=== PATIENT | male | born 1935 | race Caucasian/White ===

== ENCOUNTER 2017-01-04 15:02 | Emergency (ER) | payer OTHER ==
--- NOTE | ~2017-01-04 | CR281 ---
[facility]. [facility] A Service of [facility] & [facility] RADIOLOGY TEXT RESULTS PATIENT: YUAN GARCIA LOCATION: SED : 37 UNIT #: [id number] AGE: [address]: Susan Noble MD SEX: M ORDER DR: [id number] [address] [address] [id number] E MR#: [id number] Acc #: [id number] NAME: YUAN GARCIA : 1935 SEX: M STUDY DATE/TIME: 01/04/2017 15:00 UNIT: SED ROOM: STUDY DESCRIPTION: CR Wrist Min 3 View Lt Attending Physician: Susan Noble M.D. Ordering Physician: Susan Noble M.D. Primary Care Physician: No Primary Care Physician MEDICAL IMAGING REPORT This report is preliminary unless electronic signature is present. EXAM Left wrist, 3 views. DATE OF EXAM 01/04/2017 HISTORY Wrist pain after fall today. Injury. FINDINGS 3 views of the left wrist demonstrate nondisplaced oblique fractures through the base of the third and fourth metacarpals. There is an impacted transverse fracture at the neck of the fifth metacarpal. Wrist alignment is satisfactory. Generalized demineralization. No dislocation. Mild soft tissue swelling about the wrist. Dictated by... Brady Perez M.D. THIS IS AN ELECTRONICALLY VERIFIED REPORT Brady Perez M.D. at 01/04/2017 11:24 PM JESS/vandana TD: 01/04/2017 21:31 JOB #: [id number] MEDICAL IMAGING REPORT
--- NOTE | ~2017-01-04 | CR141 ---
[facility]. [facility] A Service of [facility] & [facility] RADIOLOGY TEXT RESULTS PATIENT: YUAN GARCIA LOCATION: SED : 37 UNIT #: [id number] AGE: [address]: Susan Noble MD SEX: M ORDER DR: [id number] [address] [address] [id number] E MR#: [id number] Acc #: [id number] NAME: YUAN GARCIA : 1935 SEX: M STUDY DATE/TIME: 01/04/2017 15:00 UNIT: SED ROOM: STUDY DESCRIPTION: CR Hand Min 3 Views Lt Attending Physician: Susan Noble M.D. Ordering Physician: Susan Noble M.D. Primary Care Physician: Primary Care Physician No MEDICAL IMAGING REPORT This report is preliminary unless electronic signature is present. EXAM Left hand INDICATIONS Fall an hour ago off the front porch with left hand pain. FINDINGS 3 views of the left hand were obtained. There is decreased bone density. There is an acute fracture through the distal end of the fifth metacarpal bone. This is a boxer's fracture. The other bones are normal. IMPRESSION Acute slightly dorsally angulated fracture through the distal portion of the shaft of the fifth metacarpal bone. Dictated by... Ronen Mccain M.D. THIS IS AN ELECTRONICALLY VERIFIED REPORT Ronen Mcacin M.D. at 01/05/2017 6:04 AM FEL/psc TD: 01/04/2017 21:36 JOB #: [id number] MEDICAL IMAGING REPORT
--- NOTE | ~2017-01-04 | CR206 ---
[facility] A Service of [facility] & [facility] RADIOLOGY TEXT RESULTS PATIENT: YUAN GARCIA LOCATION: SED : 37 UNIT #: [id number] AGE: [address]: Susan Noble MD SEX: M ORDER DR: [id number] [place] [id number] E MR#: [id number] Acc #: [id number] NAME: YUAN GARCIA : 1935 SEX: M STUDY DATE/TIME: 01/04/2017 15:00 UNIT: SED ROOM: STUDY DESCRIPTION: CR Pelvis 1 or 2 Views Attending Physician: Susan Noble M.D. Ordering Physician: Susan Noble M.D. Primary Care Physician: Primary Care Physician No MEDICAL IMAGING REPORT This report is preliminary unless electronic signature is present. EXAM AP pelvis, 01/04/2017 INDICATION Fall 1 hour ago off front porch with pain. FINDINGS Supine view of the pelvis was obtained. The bones are normal. There is no fracture. The SI joints are normal. IMPRESSION Normal AP pelvis. Dictated by... Ronen Mccain M.D. THIS IS AN ELECTRONICALLY VERIFIED REPORT Ronen Mccain M.D. at 01/05/2017 6:04 AM NEGRO/wilmer TD: 01/04/2017 21:09 JOB #: [id number] MEDICAL IMAGING REPORT
--- NOTE | ~2017-01-04 | CR90 ---
[facility] A Service of [facility] & [facility] RADIOLOGY TEXT RESULTS PATIENT: YUAN GARCIA LOCATION: SED : 37 UNIT #: [id number] AGE: [address]: Susan Noble MD SEX: M ORDER DR: [id number] [place] [id number] E MR#: [id number] Acc #: [id number] NAME: YUAN GARCIA : 1935 SEX: M STUDY DATE/TIME: 01/04/2017 15:00 UNIT: SED ROOM: STUDY DESCRIPTION: CR Elbow 2 View Lt Attending Physician: Susan Noble M.D. Ordering Physician: Susan Noble M.D. Primary Care Physician: Primary Care Physician No MEDICAL IMAGING REPORT This report is preliminary unless electronic signature is present. EXAM Left elbow, 2 views HISTORY Elbow pain after fall today. FINDINGS 2 views of the left elbow demonstrate normal bone alignment. No fracture, joint space narrowing or dislocation. No effusion. IMPRESSION Negative. Dictated by... Brady Perez M.D. THIS IS AN ELECTRONICALLY VERIFIED REPORT Brady Perez M.D. at 01/04/2017 11:24 PM DFL/venkat TD: 01/04/2017 21:28 JOB #: [id number] MEDICAL IMAGING REPORT
[~2017-01-04 15:02] MED LIST: ALPRAZOLAM PO; ASPIRIN PO; ASPIRIN81 M2 PO; ASPIRINEC PO; ATENOLOL25 MG PO; ATIVAN PO; BLOOD PRESSURE; CELEXA20 MG PO; HALDOL0.5 MG PO; IMDUR-ER30 M1 PO; ISORDIL PO; KCL PO; LASIX PO; LASIX20 MG PO; LATUDA20 MG PO; LIPITOR80 MG PO; LISINOPRIL20 MG PO; LOPRESSOR PO; LORTAB 5/500 TA1 TA1 PO; MAGOX 400400 MG PO; NO MEDICATIONS; NORCO1 TAB 10/3 PO; PHENERGAN PO; PLAVIX PO; POTASSIUM CHLO10 ME1 PO; PROZAC10 M1 PO; REMERON15 MG PO; ULTRAM PO; UNKNOWN MEDICATION; VITAMIN B-121000 MC1 SL; ZESTRIL40 MG PO; ZOCOR PO; ZOFRAN ODT4 MG/UDTAB PO; [UNRECOGNIZED DRUG - REMARK]
== END 2017-01-04 17:59 | disposition home or self-care (01) ==
LOC: SED 15:02
DX: S62.327A Displaced fracture of shaft of fifth metacarpal bone, left hand, initial encounter for closed fracture (principal); S62.343A Nondisplaced fracture of base of third metacarpal bone, left hand, initial encounter for closed fracture; S62.345A Nondisplaced fracture of base of fourth metacarpal bone, left hand, initial encounter for closed fracture; Z86.73 Personal history of transient ischemic attack (TIA), and cerebral infarction without residual deficits; I10 Essential (primary) hypertension; Z88.0 Allergy status to penicillin; W18.30XA Fall on same level, unspecified, initial encounter; Y92.009 Unspecified place in unspecified non-institutional (private) residence as the place of occurrence of the external cause
CPT/HCPCS: 29125; 72170; 73070; 73110; 73130; 99284

== ENCOUNTER 2017-01-06 13:23 | Emergency (ER) | payer OTHER ==
[2017-01-07] MEDS ORDERED: ACETAMINOPHEN PO (21:53)
[2017-01-07] MEDS ORDERED: HALDOL PO (21:58)
[2017-01-07] MEDS ORDERED: HYDRALAZINE HCL25 MG PO (21:58)
[2017-01-07] MEDS ORDERED: LATUDA20 MG PO (21:58)
[2017-01-07] MEDS ORDERED: COGENTIN1 M1 PO (21:59)
[2017-01-07] MEDS ORDERED: ASPIRIN81 MG PO (21:59)
== END 2017-01-06 16:05 | disposition home or self-care (01) ==
LOC: CED 13:23
DX: S62.303A Unspecified fracture of third metacarpal bone, left hand, initial encounter for closed fracture (principal); S62.307A Unspecified fracture of fifth metacarpal bone, left hand, initial encounter for closed fracture; Z88.0 Allergy status to penicillin; W19.XXXA Unspecified fall, initial encounter; Y92.009 Unspecified place in unspecified non-institutional (private) residence as the place of occurrence of the external cause
CPT/HCPCS: 29125; 99283

== ENCOUNTER 2017-01-07 13:04 | Emergency (ER) | payer OTHER ==
[2017-01-07] MEDS ORDERED: ACETAMINOPHEN PO (21:53)
[2017-01-07] MEDS ORDERED: HALDOL PO (21:58)
[2017-01-07] MEDS ORDERED: HYDRALAZINE HCL25 MG PO (21:58)
[2017-01-07] MEDS ORDERED: LATUDA20 MG PO (21:58)
[2017-01-07] MEDS ORDERED: ASPIRIN81 MG PO (21:59)
[2017-01-07] MEDS ORDERED: COGENTIN1 M1 PO (21:59)
== END 2017-01-07 13:40 | disposition home or self-care (01) ==
LOC: CED 13:04
DX: S62.307A Unspecified fracture of fifth metacarpal bone, left hand, initial encounter for closed fracture (principal); G30.9 Alzheimer's disease, unspecified; W19.XXXA Unspecified fall, initial encounter; Y92.009 Unspecified place in unspecified non-institutional (private) residence as the place of occurrence of the external cause; Z88.0 Allergy status to penicillin
CPT/HCPCS: 29125; 99283

== ENCOUNTER 2017-01-07 18:29 | Inpatient (IN) | payer OTHER ==
--- NOTE | ~2017-01-07 | CO ---
Unit #: [id number] #: [id number] Patient: YUAN GARCIA [id number] [address] [place], [place] [address] [id number] I MR#: [id number] NAME: YUAN GARCIA ROOM: [facility] Age: 81 Sex: M Admission Date: 01/07/2017 : 1935 Attending Physician: Sotero Ferro M.D. Primary Care Physician: Shankar Perea M.D. Consultation Date: 01/09/2017 CONSULTATION REPORT REASON FOR CONSULTATION Agitation and confusion. HISTORY OF PRESENT ILLNESS Mr. Yuan Du is a 81-year-old male, seen on 01/09/2017 in bed 469. The patient well known to us from his previous admission. 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 The patient needing a sitter, unable to give coherent history. Disorganized behavior. Disorganized thought process. Agitated. Mood was labile and irritable. But the patient was able to eat and take his medication p.o. PAST PSYCHIATRIC HISTORY Remarkable for history of Alzheimer dementia. PAST MEDICAL HISTORY Remarkable for history of stroke, Alzheimer dementia, B12 deficiency, hypertension, multiple falls, coronary artery disease. MEDICATIONS The patient is on Latuda, hydralazine, aspirin. Please refer to MAR for detail. FAMILY HISTORY AND SOCIAL HISTORY The patient has a poor family support. The patient was resident of long term. No history of any abuse. No history of any substance abuse. REVIEW OF SYSTEMS Remarkable for agitation and confusion. MENTAL STATUS EXAMINATION General appearance, the patient dressed casually. Attention span and concentration, poor. Speech, rapid. Orientation, unable to assess. Mood and affect, labile. Thought process, circumstantial. Thought content, guarded, paranoid, but denied any thoughts of harming self or others. Recent and remote memory, poor. Language, fair. Fund of knowledge, impaired. Insight and judgment, impaired. 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 Secondary diagnosis: Deferred. Unit #: [id number] #: [id number] Patient: YUAN GARCIA Medical diagnosis: Please refer to H and P. Stressors: Psychosocial stressors. ASSESSMENT/PLAN 1. Supportive psychotherapy and psychoeducation provided to patient, but the patient unable to comprehend much. 2. Advised to continue with a sitter. 3. Advised to increase Latuda to 40 mg daily. If needed, consider further adjustment of medication. We will continue to follow. Please feel free to call if any questions, telephone [phone]. Dictated by... Jocelyn Shin/andres TD: 01/11/2017 01:23 JOB #: [id number] CONSULTATION REPORT X Gerson Daugherty MD X CONSULTATION REPORT
--- NOTE | ~2017-01-07 | CO ---
Unit #: [id number] #: [id number] Patient: YUAN BARBER [id number] [address] [place], [place] [address] [id number] I MR#: [id number] NAME: YUAN BARBER ROOM: [facility] Age: 81 Sex: M Admission Date: 01/07/2017 : 1935 Attending Physician: Sotero Ferro M.D. Primary Care Physician: Shankar Perea M.D. Consultation Date: 01/12/2017 CONSULTATION REPORT REASON FOR CONSULTATION Left hand metacarpal fractures. HISTORY OF PRESENT ILLNESS Mr. Barber is a 81-year-old with Alzheimer dementia and behavioral changes who has a history of multiple falls. The patient apparently fell, landing on his left outstretched hand, resulting in metacarpal fractures. The patient was discharged home, but due to agitation, the had to bring him back for further care. He is currently requiring Haldol and a one-on-one sitter. The patient does note some left hand pain but, otherwise, apparently has been doing okay. PAST MEDICAL HISTORY 1. Coronary artery disease. 2. Hypertension. 3. Hyperlipidemia. 4. Multiple CVAs. 5. Dementia. 6. Depression. PAST SURGICAL HISTORY 1. CABG. 2. Cholecystectomy. 3. Right elbow surgery. SOCIAL HISTORY The patient lives with his . He does not smoke or drink alcohol. FAMILY HISTORY Coronary artery disease. ALLERGIES Penicillin. MEDICATIONS Desyrel, Latuda, Vistaril, hydralazine, Cogentin, aspirin, Zofran, Percocet, Tylenol, Haldol. REVIEW OF SYSTEMS On examination, the patient was confused this morning. No pertinent positives or negatives obtained differing from the HPI. PHYSICAL EXAMINATION GENERAL: The patient is resting in bed but is not alert or oriented. Unit #: [id number] #: [id number] Patient: YUAN BARBER VITAL SIGNS: Temperature 98.4 degrees Fahrenheit, pulse 56, blood pressure 148/56, respirations 18, oxygen saturation 98%. HEENT: Head is atraumatic and normocephalic. Mucous membranes are moist. NECK: Cervical spine is midline. No appreciable JVD. RESPIRATORY: Breathing is nonlabored, and chest rises symmetric. CARDIOVASCULAR: Pulse is regular rate and rhythm. ABDOMEN: Abdomen is soft, nontender and nondistended. EXTREMITIES: No clubbing, cyanosis or edema of the extremities other than the left hand. No open skin wounds appreciated. There are some abrasions of the left wrist and arm. FOCUSED ORTHOPEDIC EXAM OF THE LEFT UPPER EXTREMITY: RENA bandage over the wrist and hand. No splint. Moderate swelling about the hand region. Grossly moving digits. No motor or sensory deficit appreciated. Hand warm and well perfused. DIAGNOSTIC STUDIES DIAGNOSTIC IMAGING: X-rays reviewed of the left hand. There are nondisplaced bases of the third and fourth metacarpal fractures. There is a boxer's fracture of the fifth metacarpal. This is mildly displaced. DIAGNOSTIC LABS: BUN 24, creatinine 1.1. White blood cell count 5.9, hemoglobin 11.8, platelets 124. IMPRESSION A 81-year-old male with Alzheimer dementia and left base of third and fourth nondisplaced metacarpal fractures and fifth displaced boxer's fracture. PLAN I recommend continued conservative treatment. We will order a Velcro splint to help protect the hand and wrist. It may need to be wrapped with an RENA bandage to prevent the patient from taking it off. These fractures will heal with time. No surgery or other treatment needed. We will obtain the splint and check in on the patient afterward. Thank you for consulting us on this patient. Dictated by... Rahat Lambert M.D. CHERI/korey TD: 01/12/2017 08:19 JOB #: [id number] CONSULTATION REPORT X X CONSULTATION REPORT
--- NOTE | ~2017-01-07 | A ---
[facility] Nutrition Therapy DATE: 01/17/17 Patient: YUAN GARCIA Physician: SUKHWINDERPRAN Address: [address] [facility] Room/Bed: [address] [place] [address], Zip: [place] [address] Admit Date: 01/07/17 Date of : 37 Height: Weight: 171 78.01 NUTRITIONAL ASSESSMENT: REASON: Seen for length of stay Admitting Dx: 81 y/o male admitted with left metacarpal fractures, falls, weakness PMH: Multiple falls, dementia, depression, CAD s/p CABG, multiple strokes, HTN, HLD, B12 deficiency Anthropometrics: Ht: 67", admission wt: 78 kg, no new weight, BMI: 26 (overweight) Labs: Na 134, BUN 31 Meds: Zofran, Colace, psych meds noted I/O & Bowel function: LBM 01/14 Skin Integrity: Splint L wrist Assessment: Chart reviewed, events noted. See admitting dx and PMH as stated above. Patient being assessed due to 10 day LOS. He has hx of dementia, is A/O x 1, is anxious and confused, has 1:1 sitter. unable to care for him any longer, awaiting NH placement. Dr. Daugherty is following. No new weight since admission. Has been on a regular diet since admission however nursing reports PO intake is not great (usually < 50% of meals). RN also reports the patient needs fluids but patient is refusing an IV so she is trying to push PO fluids. RD discussed ordering Ensure, RN agreed it would be a good idea. Patient requires feeding and ordering assistance. Unable to interview patient or obtain weight/diet history due to his mental status, no family at bedside. See RD recs below, will follow hospital course. Dx: Inadequate oral intake r/t dementia-producing behavioral changes AEB RN report, need for ONS. Intervention: Ensure TID Monitoring, Evaluation and Goals: 1. Increase in oral intake > 50% of meals. 2. > 50% supplement intake TID. 3. Prevent unintentional weight loss. 4. Promote adequate fluid status. 5. Promote normal BM's. [facility] Nutrition Therapy DATE: 01/17/17 Patient: YUAN GARCIA Physician: REJI Address: [address] [place] [address] Room/Bed: [address] [place] [address], Zip: [place] [address] Admit Date: 01/07/17 Date of : 37 Height: Weight: 171 78.01 Monitor: Per protocol, criteria to determine if above goals met Recommendations: 1. Continue regular diet, appreciate staff/family to encourage oral intake. Patient requires full assistance with order meals and feeding. 2. RD ordered Ensure TID to increase oral kcal/protein/fluid intake. Please also encourage increased PO water intake. 3. Weigh the patient and update in [facility] to monitor weight trend. RD will follow hospital course Mild-moderate nutrition risk Respectfully, Marita Porter, CARLENE, LD [facility] cc: client file
--- NOTE | ~2017-01-07 | CR278 ---
[facility] A Service of [facility] RADIOLOGY TEXT RESULTS PATIENT: YUAN GARCIA LOCATION: [place] [address] : 37 UNIT #: [id number] AGE: [address]: Sotero Ferro MD SEX: M ORDER DR: [id number] [facility] [address] [place], [place] [address] [id number] I MR#: [id number] Acc #: [id number] NAME: YUAN GARCIA : 1935 SEX: M STUDY DATE/TIME: 01/10/2017 11:48 UNIT: [facility] ROOM: [facility] STUDY DESCRIPTION: CR Wrist 2 View Lt Attending Physician: Sotreo Ferro M.D. Ordering Physician: Sotero Ferro M.D. Primary Care Physician: Shankar Perea M.D. MEDICAL IMAGING REPORT This report is preliminary unless electronic signature is present EXAM Left wrist, 3 views. DATE OF EXAM 01/10/2017, 1148 hours. CLINICAL HISTORY Chart says patient fell on 01/07/2017, with pain in the wrist and distal forearm. COMPARISON Left wrist film, 01/04/2017. FINDINGS AP, lateral and oblique views are performed. The bones are osteopenic. The distal radius and ulna and carpal bones are intact. Again demonstrated are fractures of the proximal third and fourth metacarpals and displaced angulated fracture of the distal fifth metacarpal which appeared to be acute on 01/04/2017. No interval healing is seen. IMPRESSION 1. No acute fracture of the distal radius or ulna or carpal bones. 2. Again demonstrated are fractures of the proximal third and fourth metacarpals and the distal fifth metacarpal similar to 01/04/2017. No interval healing is seen. Dictated by... Jonelle Dacosta M.D. THIS IS AN ELECTRONICALLY VERIFIED REPORT Jonelle Dacosta M.D. at 01/11/2017 9:29 AM SMM/jt [facility] A Service of [facility] & [facility] RADIOLOGY TEXT RESULTS PATIENT: YUAN GACRIA LOCATION: [facility] 476-01 : 37 UNIT #: [id number] AGE: [address]: Sotero Ferro MD SEX: M ORDER DR: TD: 01/10/2017 16:58 JOB #: [id number] MEDICAL IMAGING REPORT COPY
--- NOTE | ~2017-01-07 | CO ---
Unit #: [id number] #: [id number] Patient: YUAN BARBER [id number] [facility] [address] [place], [place] [address] [id number] I MR#: [id number] NAME: YUAN BARBER ROOM: 476 Age: 81 Sex: M Admission Date: 01/07/2017 : 1935 Attending Physician: Sotero Ferro M.D. Primary Care Physician: Shankar Perea M.D. Consultation Date: 01/11/2017 CONSULTATION REPORT DISCUSSION Yuan Barber is a 81-year-old male, seen on 01/11/2017 in room 476. The patient continues to be confused and guarded. The patient was seen in room 476 at [facility] on 01/11/2017. The patient's behavior continues to be disorganized, guarded, paranoid, anxious, confused. The patient is needing a sitter for safety. REVIEW OF SYSTEMS Complete review of systems unremarkable. MENTAL STATUS EXAMINATION General appearance, the patient is dressed casually, lying comfortably in bed. Attention span and concentration, poor. Speech, rapid. Orientation in place. Mood and affect, labile. Thought process, circumstantial. Thought content, guarded, paranoid, but denied any thoughts of harming self or others. Recent and remote memory, poor. Language, the patient has intelligible speech. Fund of knowledge, poor. Insight and judgment, impaired. 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 ASSESSMENT/PLAN 1. Supportive psychotherapy and psychoeducation were provided to patient, but the patient is unable to comprehend much. 2. Advised to continue with a sitter for the patient's safety. 3. Recommending to continue with current medication with a plan to add trazodone 50 mg at bedtime as the patient is having trouble sleeping. Please feel free to call if any questions, telephone #[phone]. Dictated by... Gerson Daugherty M.D. TAVON/andres TD: 01/12/2017 07:10 JOB #: [id number] Unit #: [id number] #: [id number] Patient: YUAN BARBER CONSULTATION REPORT X Gerson Daugherty MD CONSULTATION REPORT
--- NOTE | ~2017-01-07 | CT71 ---
[facility] A Service of [facility] RADIOLOGY TEXT RESULTS PATIENT: YUAN GARCIA LOCATION: [facility] 463- : 37 UNIT #: [id number] AGE: [address]: Arnie Wilson MD SEX: M ORDER DR: [id number] [facility] [address] [facility]. [place], [place] [address] [id number] I MR#: [id number] Acc #: [id number] NAME: YUAN GARCIA : 1935 SEX: M STUDY DATE/TIME: 01/07/2017 17:59 UNIT: [facility] ROOM: [facility] STUDY DESCRIPTION: CT Head Wo Contrast Attending Physician: Arnie Wilson M.D. Ordering Physician: Tom Beal D.O. Primary Care Physician: Shankar Perea M.D. MEDICAL IMAGING REPORT This report is preliminary unless electronic signature is present EXAM Head CT without contrast 01/07/2017. HISTORY Posterior head pain status post fall 1 week ago, with altered mental status, increased confusion since fall. TECHNIQUE Multiple axial images were obtained from the skull base to vertex without intravenous contrast administration. This CT exam was performed with one or more of the following radiation dose reduction techniques: automatic exposure control, adjustment of mA and/or kV according to patient size, and iterative reconstruction. FINDINGS There is generalized enlargement of the ventricles and sulci characteristic of atrophy and there is periventricular microvascular white matter ischemic change. There is an old right middle cerebral artery distribution infarct with encephalomalacia. There are old lacunar infarcts involving both cerebellar hemispheres, right thalamic nucleus and the lentiform nuclei bilaterally. There is no midline shift. There is no mass or mass effect, hemorrhage or acute infarct. There is complete opacification of the left maxillary sinus characteristic of sinusitis. IMPRESSION 1. Generalized atrophy and periventricular microvascular white matter ischemic change. 2. Old right middle cerebral artery distribution infarct with encephalomalacia. Old lacunar infarcts as noted above. No acute intracranial abnormality. 3. Complete opacification of the left maxillary sinus characteristic of sinusitis. [facility] A Service of [facility] RADIOLOGY TEXT RESULTS PATIENT: YUAN GARCIA LOCATION: [facility] 463-01 : 37 UNIT #: [id number] AGE: [address]: Arnie Wilson MD SEX: M ORDER DR: Dictated by... Ignacio Avery M.D. THIS IS AN ELECTRONICALLY VERIFIED REPORT Ignacio Avery M.D. at 01/08/2017 2:14 PM KRT/gz TD: 01/08/2017 08:51 JOB #: [id number] MEDICAL IMAGING REPORT COPY
--- NOTE | ~2017-01-07 | HP ---
Unit #: [id number] #: [id number] Patient: YUAN GARCIA [id number] [facility]. [place], [place] [address] [id number] I MR#: [id number] NAME: YUAN GARCIA ROOM: 463 Age: 81 Sex: M Admission Date: 01/07/2017 : 1935 Attending Physician: Arnie Wilson M.D. Primary Care Physician: Shankar Perea M.D. HISTORY AND PHYSICAL CHIEF COMPLAINT Hand pain. cannot take care of the patient. DISCUSSION This is a 81-year-old gentleman who has a history of Alzheimer's dementia with behavioral changes with history of multiple falls, coronary artery disease with previous CABG, stroke, hypertension, and prior history of B12 deficiency. He recently had an admission at [facility] and was discharged home. Patient also has been having multiple visits to the emergency room. He had a fall two days ago and was brought to the emergency room where workup on x-ray showed a left fracture of distal portion of the fifth metacarpal and third and fourth metacarpals. A cast was placed, and patient was eventually discharged. He was brought again to the ER today, the second time again brought to the ER. The dropped the patient at the ER. The said that she cannot take care of the patient, and she left. Not able to reach the at this time, not answering. He was a little bit agitated requiring some Haldol, and now he is requiring a one-to-one sitter. He is otherwise comfortable. He is not agitated at this time. Patient is being admitted for fdc placement. Patient said he feels better. His feet are cold and is having left hand pain; otherwise, he denies any other complaints. PAST MEDICAL HISTORY 1. Coronary artery disease, status post three-vessel CABG. Previous echo in February 2016 was a technically difficulty study with mild left ventricular hypertrophy, left ventricular systolic function normal, impaired left ventricular relaxation, and trace mitral regurgitation and tricuspid regurgitation. 2. Lexiscan in July 2015 revealed a fixed lateral wall perfusion abnormality. 3. Holter monitor in September 2016 showed no sustained atrial or ventricular arrhythmia, a 1.8 second pause noted, and frequent single multifocal PVCs. 4. Hypertension. 5. Hyperlipidemia. 6. Multiple CVAs. 7. Dementia with behavior changes. 8. Depression. 9. Admission for multiple falls in the past and also prolonged QT interval. 10. Admission in August 2016 for delirium, dementia, and fall with multiple rib fractures. 11. Low B12 level. 12. Cholecystectomy. Unit #: [id number] #: [id number] Patient: YUAN GARCIA 13. Right elbow repair. SOCIAL HISTORY Patient lives with his . He is a lifelong nonsmoker and does not drink alcohol. FAMILY HISTORY Coronary artery disease. ALLERGIES PENICILLIN. MEDICATIONS Discharge medications from the last discharge were: 1. Tylenol 650 q.4 hours p.r.n. 2. Haldol 1 mg b.i.d. p.r.n. 3. Latuda 20 mg at bedtime. 4. Hydralazine 25 mg 3 times daily. 5. Aspirin 81 mg daily. 6. Cogentin 1 mg daily. REVIEW OF SYSTEMS Difficult to obtain as the patient himself is a very poor historian. PHYSICAL EXAMINATION GENERAL: An elderly man lying in the bed comfortably, currently not in any distress. CURRENT VITAL SIGNS: Temperature 98, heart rate 64, respirations 16, and blood pressure is 141/70. HEENT: Pupils equally reactive to light and accommodation. Extraocular muscles intact. Pharynx is benign. NECK: Supple. No JVD, no thyromegaly. LUNGS: Clear to auscultation. No rhonchi, no wheezing. HEART: S1 and S2, regular rate and rhythm. ABDOMEN: Soft, nontender, nondistended. Bowel sounds positive. EXTREMITIES: Inspection normal. No cyanosis, no clubbing, no edema. NEUROLOGIC: Unable to do neuro exam at this time secondary to patient's cooperation. DIAGNOSTIC STUDIES LABORATORY: Urine toxicology is negative. Urinalysis is negative. Glucose 88, sodium 136, potassium 3.4, chloride 101, BUN 20, and creatinine 1. LFTs within normal limits. Alcohol less than 5. CBC with white count of 6.9, hemoglobin 12, hematocrit 36, and platelets 116,000. ASSESSMENT AND PLAN 1. Deconditioning, weakness, falls, unable to take care. Will admit the patient for fdc placement and ask the associate financial planner to evaluate. Will keep the patient with a one-to-one sitter and ask Dr. Daugherty/[facility], to evaluate. 2. History of past falls with left fifth metacarpal and third and fourth metacarpal fractures in a cast. 3. Alzheimer's dementia with behavior changes. 4. Multiple falls. 5. History of coronary artery disease with previous coronary artery bypass grafting. 6. History of stroke. 7. Hypertension. Unit #: [id number] #: [id number] Patient: YUAN GARCIA 8. Mild hypokalemia, replace. 9. Previous history of low B12 level. 10. Once again, this admission is a social admission. Will admit the patient and ask associate financial planner to evaluate for rehab placement. 1. Dictated by Jocelyn Walker/evita TD: 01/08/2017 14:19 JOB #: [id number] HISTORY AND PHYSICAL X X HISTORY AND PHYSICAL
--- NOTE | ~2017-01-07 | CO ---
Unit #: [id number] #: [id number] Patient: YUAN BARBER [id number] [place], [place] [address] [id number] I MR#: [id number] NAME: YUAN BARBER ROOM: 476 Age: 81 Sex: M Admission Date: 01/07/2017 : 1935 Attending Physician: Sotero Ferro M.D. Primary Care Physician: Shankar Perea M.D. Consultation Date: 01/13/2017 CONSULTATION REPORT REASON FOR CONSULTATION Followup. DISCUSSION Mr. Yuan Barber is a 81-year-old white male, seen in room 476, bed 1 on 01/13/2017. The patient has a sitter, diagnosed with dementia, also having behavioral disturbances. The patient currently has a sitter. The patient continues to have trouble during the daytime from sleepy to awake. The patient still needing redirection, thoughts disorganized, mood was labile. The patient, however, did not require any seclusion or any restraints, tolerating medication fairly well. The patient is currently on Colace, Desyrel 50 mg at bedtime, Latuda 40 mg at bedtime, Vistaril 25 mg b.i.d., Cogentin 1 mg daily. The patient has a haloperidol p.r.n., but did not require. REVIEW OF SYSTEMS Complete review of systems is unremarkable except for agitation. MENTAL STATUS EXAMINATION General appearance; the patient dressed casually, lying comfortably in bed, redirectable. Attention span and concentration were poor. Speech was rapid, poor articulation. Oriented in place. Mood and affect were labile. Thought process, circumstantial. Thought content, guarded, paranoid, but denied any thoughts of harming self or others. Recent and remote memory, poor. Language, fair. Fund of knowledge, poor. Insight and judgment, impaired. 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 ASSESSMENT/PLAN 1. Supportive psychotherapy and psychoeducation provided to the patient. 2. Educated about benefits and side effects of medication, but the patient unable to comprehend much. 3. Advised at this time to continue with current medication. If needed, consider cutting back on medication, but at this time the patient is tolerating fairly well. We will closely monitor the patient's medication regimen. If needed, consider further adjustment. Thank you. Please feel free to call if any questions, telephone #[phone]. Dictated by... Unit #: [id number] #: [id number] Patient: YUAN BARBER M.D. SZC/andres TD: 01/14/2017 01:02 JOB #: [id number] CONSULTATION REPORT X Gerson Daugherty MD X CONSULTATION REPORT
--- NOTE | ~2017-01-07 | DS ---
Unit #: [id number] #: [id number] Patient: YUAN GARCIA [id number] [place], [place] [address] [id number] MR#: [id number] NAME: YUAN GARCIA ROOM: 471 Age: 81 Sex: M Admission Date: 01/07/2017 : 1935 Discharge Date: 01/17/2017 Attending Physician: Sotero Ferro M.D. Primary Care Physician: Shankar Perea M.D. DISCHARGE SUMMARY ADMITTING DIAGNOSES 1. Hand pain. 2. Failure to thrive. FURTHER DIAGNOSES 1. Hypertension. 2. History of coronary artery disease, status post coronary artery bypass grafting. 3. History of stroke. 4. History of Alzheimer dementia with behavioral changes. 5. Left hand metacarpal fractures. CONSULTANTS 1. Dr. Lambert. 2. Dr. Daugherty. HISTORY OF PRESENTING ILLNESS Patient is a 81-year-old gentleman with a past medical history of Alzheimer dementia, history of multiple falls, coronary artery disease with CABG in the past, stroke, and hypertension, was brought to the emergency room because of hand pain because of fall and also cannot take care of the patient. HOSPITAL COURSE He was started on IV fluids and p.r.n. analgesics for the hand pain. X-rays showed left metacarpal fractures. Orthopedic Surgery was consulted, and they recommended conservative management. In the hospital course, Psychiatry was consulted. His medications were titrated. He initially had a sitter and was agitated. Later, he became calm, and we stopped the sitter in the last 24 hours. I never saw the family in the room. I made an attempt to reach the family today a couple of times, but I could not reach them, and we left a message for them to call back the case coordinator, Kaya mentioned. She spoke with the family, and they are agreeable for him to go to rehab. He will be transferred to rehab for further care. PHYSICAL EXAMINATION ON DAY OF DISCHARGE VITAL SIGNS: Temperature 98.2, pulse rate 48, respiratory rate 18, and blood pressure 146/54. GENERAL: Patient is alert and oriented x3. He is drowsy but arousable. HEENT: Normocephalic and atraumatic. No icterus. Pupils are equal, Unit #: [id number] #: [id number] Patient: YUAN GARCIA round, and reactive to light and accommodation. Extraocular muscles intact. NECK: Supple. No JVD. HEART: S1 and S2, regular rate and rhythm. CHEST: Bilateral equal air entry, clear to auscultation. ABDOMEN: Soft and nontender. EXTREMITIES: Left wrist in splint. DISCHARGE MEDICATIONS 1. Oxycodone 5/325 mg 1 tab p.o. q.4-6 hours p.r.n. for pain. 2. Tylenol p.r.n. 3. Trazodone 50 mg at bedtime. 4. Zofran 4 mg q.6 p.r.n. for nausea and vomiting. 5. Cogentin 1 mg p.o. daily. 6. Haldol 1 mg p.o. twice daily p.r.n. for agitation. 7. Latuda 40 mg daily. 8. Vistaril 25 mg twice daily. 9. Colace 100 mg twice daily. 10. Hydralazine 25 mg 3 times daily. 11. Aspirin 81 mg daily. Total time spent in his care 35 minutes. Dictated by... Jocelyn Santo/evita TD: 01/17/2017 17:06 JOB #: [id number] DISCHARGE SUMMARY Page 1 of 1 X X DISCHARGE SUMMARY
[2017-01-07 18:03] LABS: BASOPHIL% 0.3 % (0-2.5); EOSINOPHIL# 0.1 X10e3 (0-0.7); EOSINOPHIL% 1.7 % (0.0-7.0); HEMATOCRIT 36.3 % (38.0-50.0); HEMOGLOBIN 12.1 gm/dL (13.0-16.0); LYMPHOCYTE# 2.1 X10e3 (1.0-3.5); LYMPHOCYTE% 31.1 % (17.0-45.0); MEAN CELL VOLUME 91.3 FL (83-96); MEAN CORPUSCULAR HEMOGLOBIN 30.4 PG (28-34); MEAN CORPUSCULAR HGB CONC 33.3 g/dL (30-36); MEAN PLATELET VOLUME 10.5 FL (6.5-11.5); MONOCYTE# 0.9 X10e3 (0-1.0); MONOCYTE% 13.7 % (3.0-12.0); NEUTROPHIL# 3.7 X10e3 (1.5-7.1); NEUTROPHIL% 53.2 % (40-75); PLATELET COUNT 116 X10e3 (140-420); RED BLOOD COUNT 3.98 X10e (3.90-5.60); RED CELL DISTRIBUTION WIDTH 13.8 % (11.0-15.5); WHITE BLOOD COUNT 6.9 X10e3 (4.0-10.5)
[2017-01-07 18:04] LABS: DIFF IND NO
[2017-01-07 18:18] LABS: ALBUMIN SERUM 3.6 g/dL (3.5-5.0); ALKALINE PHOSPHATASE 72 U/L (32-92); ALT (SGPT) 14 U/L (10-40); AST (SGOT) 20 U/L (10-42); BLOOD UREA NITROGEN 20 mg/dL (9-23); CALCIUM SERUM 8.4 mg/dL (8.4-10.2); CARBON DIOXIDE 29 mmol/L (22-31); CHLORIDE 101 mmol/L (100-111); GLOM FILT RATE Estimated ABOVE60 mL/min (>60); GLUCOSE FASTING 101 mg/dL (70-110); POTASSIUM 3.4 mmol/L (3.5-5.1); PROTEIN TOTAL SERUM 6.3 g/dL (6.0-8.3); SALICYLATE <4.0 mg/dL; SODIUM 136 mmol/L (135-145)
[2017-01-07 18:24] LABS: ACETAMINOPHEN <10 ug/mL; ALCOHOL BLOOD <5 mg/dL (0)
[2017-01-07 19:54] LABS: URINE SOURCE CLEAN CATCH
[2017-01-07 20:00] LABS: URINE APPEARANCE CLEAR; URINE BILIRUBIN NEG (NEG); URINE BLOOD NEG (NEG); URINE COLOR YELLOW; URINE GLUCOSE NEG (NEG); URINE KETONE NEG (NEG); URINE LEUKOCYTE ESTERASE NEG (NEG); URINE NITRATE NEG (NEG); URINE PROTEIN NEG (NEG); URINE SPECIFIC GRAVITY 1.016 (1.003-1.035)
[2017-01-07 20:04] LABS: CULTURE INDICATED? NO
[2017-01-07 20:33] LABS: AMPHETAMINE NEG (NEG); BARBITURATES NEG (NEG); BENZODIAZEPINES NEG (NEG); COCAINE NEG (NEG); MARIJUANA NEG (NEG); OPIATES NEG (NEG); TRICYCLIC ANTIDEPRESSANTS NEG (NEG); U METHADONE NEG (NEG)
[2017-01-07] MEDS ORDERED: ACETAMINOPHEN PO (21:53)
[2017-01-07] MEDS ORDERED: LATUDA20 MG PO (21:58)
[2017-01-07] MEDS ORDERED: HALDOL PO (21:58)
[2017-01-07] MEDS ORDERED: HYDRALAZINE HCL25 MG PO (21:58)
[2017-01-07] MEDS ORDERED: ASPIRIN81 MG PO (21:59)
[2017-01-07] MEDS ORDERED: COGENTIN1 M1 PO (21:59)
[2017-01-08 07:12] LABS: BASOPHIL% 0.2 % (0-2.5); EOSINOPHIL# 0.1 X10e3 (0-0.7); EOSINOPHIL% 1.6 % (0.0-7.0); HEMATOCRIT 36.6 % (38.0-50.0); HEMOGLOBIN 12.2 gm/dL (13.0-16.0); LYMPHOCYTE# 1.4 X10e3 (1.0-3.5); LYMPHOCYTE% 24.2 % (17.0-45.0); MEAN CELL VOLUME 91.7 FL (83-96); MEAN CORPUSCULAR HEMOGLOBIN 30.7 PG (28-34); MEAN CORPUSCULAR HGB CONC 33.4 g/dL (30-36); MEAN PLATELET VOLUME 11.1 FL (6.5-11.5); MONOCYTE# 0.6 X10e3 (0-1.0); MONOCYTE% 10.7 % (3.0-12.0); NEUTROPHIL# 3.7 X10e3 (1.5-7.1); NEUTROPHIL% 63.3 % (40-75); PLATELET COUNT 108 X10e3 (140-420); RED BLOOD COUNT 3.99 X10e (3.90-5.60); RED CELL DISTRIBUTION WIDTH 13.9 % (11.0-15.5); WHITE BLOOD COUNT 5.8 X10e3 (4.0-10.5)
[2017-01-08 07:13] LABS: DIFF IND NO
[2017-01-08 07:41] LABS: BLOOD UREA NITROGEN 25 mg/dL (9-23); BUN/CREATININE RATIO 22.72; CALCIUM SERUM 8.8 mg/dL (8.4-10.2); CARBON DIOXIDE 28 mmol/L (22-31); CHLORIDE 103 mmol/L (100-111); CREATININE SERUM 1.1 mg/dL (0.6-1.4); GLOM FILT RATE Estimated ABOVE60 mL/min (>60); GLUCOSE FASTING 125 mg/dL (70-110); POTASSIUM 4.1 mmol/L (3.5-5.1); SODIUM 138 mmol/L (135-145)
[2017-01-09 03:09] LABS: HEMATOCRIT 33.8 % (38.0-50.0); HEMOGLOBIN 11.1 gm/dL (13.0-16.0); MEAN CELL VOLUME 91.5 FL (83-96); MEAN CORPUSCULAR HEMOGLOBIN 30.2 PG (28-34); MEAN PLATELET VOLUME 11.3 FL (6.5-11.5); RED BLOOD COUNT 3.69 X10e (3.90-5.60); RED CELL DISTRIBUTION WIDTH 13.9 % (11.0-15.5); WHITE BLOOD COUNT 5.5 X10e3 (4.0-10.5)
[2017-01-09 03:36] LABS: BLOOD UREA NITROGEN 23 mg/dL (9-23); BUN/CREATININE RATIO 25.55; CALCIUM SERUM 8.4 mg/dL (8.4-10.2); CARBON DIOXIDE 29 mmol/L (22-31); CHLORIDE 104 mmol/L (100-111); CREATININE SERUM 0.9 mg/dL (0.6-1.4); GLOM FILT RATE Estimated ABOVE60 mL/min (>60); GLUCOSE FASTING 130 mg/dL (70-110); POTASSIUM 3.8 mmol/L (3.5-5.1); SODIUM 138 mmol/L (135-145)
[2017-01-10 04:20] LABS: BLOOD UREA NITROGEN 22 mg/dL (9-23); BUN/CREATININE RATIO 18.33; CALCIUM SERUM 8.6 mg/dL (8.4-10.2); CARBON DIOXIDE 29 mmol/L (22-31); CHLORIDE 100 mmol/L (100-111); CREATININE SERUM 1.2 mg/dL (0.6-1.4); GLOM FILT RATE Estimated ABOVE60 mL/min (>60); GLUCOSE FASTING 111 mg/dL (70-110); POTASSIUM 4.1 mmol/L (3.5-5.1); SODIUM 133 mmol/L (135-145)
[2017-01-11 04:34] LABS: BASOPHIL% 0.4 % (0-2.5); DIFF IND NO; EOSINOPHIL# 0.2 X10e3 (0-0.7); EOSINOPHIL% 3.9 % (0.0-7.0); HEMATOCRIT 36.5 % (38.0-50.0); HEMOGLOBIN 11.8 gm/dL (13.0-16.0); LYMPHOCYTE# 2.4 X10e3 (1.0-3.5); LYMPHOCYTE% 40.3 % (17.0-45.0); MEAN CELL VOLUME 92.5 FL (83-96); MEAN CORPUSCULAR HEMOGLOBIN 29.9 PG (28-34); MEAN CORPUSCULAR HGB CONC 32.3 g/dL (30-36); MEAN PLATELET VOLUME 10.7 FL (6.5-11.5); MONOCYTE# 0.9 X10e3 (0-1.0); MONOCYTE% 15.2 % (3.0-12.0); NEUTROPHIL# 2.4 X10e3 (1.5-7.1); NEUTROPHIL% 40.2 % (40-75); PLATELET COUNT 124 X10e3 (140-420); RED BLOOD COUNT 3.94 X10e (3.90-5.60); RED CELL DISTRIBUTION WIDTH 14.2 % (11.0-15.5); WHITE BLOOD COUNT 5.9 X10e3 (4.0-10.5)
[2017-01-11 05:01] LABS: BLOOD UREA NITROGEN 24 mg/dL (9-23); BUN/CREATININE RATIO 21.81; CALCIUM SERUM 8.9 mg/dL (8.4-10.2); CARBON DIOXIDE 30 mmol/L (22-31); CHLORIDE 104 mmol/L (100-111); CREATININE SERUM 1.1 mg/dL (0.6-1.4); GLOM FILT RATE Estimated ABOVE60 mL/min (>60); GLUCOSE FASTING 97 mg/dL (70-110); POTASSIUM 4.3 mmol/L (3.5-5.1); SODIUM 139 mmol/L (135-145)
[2017-01-12 04:36] LABS: BLOOD UREA NITROGEN 24 mg/dL (9-23); BUN/CREATININE RATIO 21.81; CALCIUM SERUM 8.6 mg/dL (8.4-10.2); CARBON DIOXIDE 21 mmol/L (22-31); CHLORIDE 105 mmol/L (100-111); CREATININE SERUM 1.1 mg/dL (0.6-1.4); GLOM FILT RATE Estimated ABOVE60 mL/min (>60); GLUCOSE FASTING 124 mg/dL (70-110); POTASSIUM 4.2 mmol/L (3.5-5.1); SODIUM 137 mmol/L (135-145)
[2017-01-14 04:00] LABS: HEMATOCRIT 38.3 % (38.0-50.0); HEMOGLOBIN 12.6 gm/dL (13.0-16.0); MEAN CORPUSCULAR HEMOGLOBIN 30.2 PG (28-34); MEAN CORPUSCULAR HGB CONC 32.8 g/dL (30-36); MEAN PLATELET VOLUME 10.4 FL (6.5-11.5); RED BLOOD COUNT 4.17 X10e (3.90-5.60); RED CELL DISTRIBUTION WIDTH 13.8 % (11.0-15.5); WHITE BLOOD COUNT 6.9 X10e3 (4.0-10.5)
[2017-01-14 04:53] LABS: BLOOD UREA NITROGEN 28 mg/dL (9-23); CARBON DIOXIDE 26 mmol/L (22-31); CHLORIDE 105 mmol/L (100-111); GLOM FILT RATE Estimated ABOVE60 mL/min (>60); GLUCOSE FASTING 112 mg/dL (70-110); POTASSIUM 4.5 mmol/L (3.5-5.1); SODIUM 137 mmol/L (135-145)
[2017-01-17 04:54] LABS: BLOOD UREA NITROGEN 31 mg/dL (9-23); CALCIUM SERUM 9.2 mg/dL (8.4-10.2); CARBON DIOXIDE 28 mmol/L (22-31); CHLORIDE 99 mmol/L (100-111); GLOM FILT RATE Estimated ABOVE60 mL/min (>60); GLUCOSE FASTING 103 mg/dL (70-110); POTASSIUM 4.2 mmol/L (3.5-5.1); SODIUM 134 mmol/L (135-145)
== END 2017-01-17 19:20 | DRG 57 ==
LOC: CED 18:29 → CEDOF 22:13 → C4C 01-08 07:55
PROVIDERS: Emergency Medicine; Internal Medicine
DX: G30.9 Alzheimer's disease, unspecified (principal); F02.81 Dementia in other diseases classified elsewhere, unspecified severity, with behavioral disturbance; E86.0 Dehydration; I25.10 Atherosclerotic heart disease of native coronary artery without angina pectoris; Z95.1 Presence of aortocoronary bypass graft; Z86.73 Personal history of transient ischemic attack (TIA), and cerebral infarction without residual deficits; I10 Essential (primary) hypertension; E78.5 Hyperlipidemia, unspecified; F32.9 Major depressive disorder, single episode, unspecified; Z90.49 Acquired absence of other specified parts of digestive tract; Z88.0 Allergy status to penicillin; Z79.82 Long term (current) use of aspirin; W19.XXXA Unspecified fall, initial encounter; R53.1 Weakness; E87.6 Hypokalemia; S62.303A Unspecified fracture of third metacarpal bone, left hand, initial encounter for closed fracture; S62.305A Unspecified fracture of fourth metacarpal bone, left hand, initial encounter for closed fracture; S62.307A Unspecified fracture of fifth metacarpal bone, left hand, initial encounter for closed fracture; R62.7 Adult failure to thrive; K59.00 Constipation, unspecified; Z68.26 Body mass index [BMI] 26.0-26.9, adult; Y92.009 Unspecified place in unspecified non-institutional (private) residence as the place of occurrence of the external cause
CPT/HCPCS: 70450; 73100; 80048; 80053; 80307; 81003; 82947; 83036; 85025; 85027; 97110; 97116; 97163; 97167; 97530; 97535; 99285; G0480; G8978-GP; G8979-GP; G8987-GO; G8988-GO; G8989-GO